=== PATIENT | female | born 1970 | race Caucasian/White ===

== ENCOUNTER 2016-10-05 21:52 | Inpatient (IN) | payer OTHER ==
[~2016-10-05] VITALS: Ht 165.1 cm; Wt 100.9 kg
--- NOTE | 2016-10-05 23:22 | ED CLINICAL REPORT ---
Clinical Report - Physicians/Mid Levels [facility] [address] [place] [address] 10/05/2016 21:54 Patient: OSKAR STYLES Time Seen: 22:05. Arrived- By private vehicle. Historian- patient. HISTORY OF PRESENT ILLNESS Chief Complaint: ABDOMINAL PAIN. This started about 4 hours ago and is still present. It was gradual in onset and has been waxing/waning. At its maximum, severity described as moderate. When seen in the E.D., severity described as moderate. Modifying factors. Not worsened by anything. Not relieved by anything. It is described as "pain". No radiation. It is described as located in the upper abdomen. The patient has had mild nausea. No vomiting or diarrhea. Similar symptoms previously: None. Recent medical care: Not recently seen/assessed. REVIEW OF SYSTEMS No constipation, black stools, hematemesis, difficulty with urination or pain with urination. No urinary frequency, bloody stools, fever, headache or sore throat. No chest pain, difficulty breathing, cough or back pain. Denies current . All systems otherwise negative, except as recorded above. PAST HISTORY See nurses notes. Primary physician: Dr Bynum ([place]). Type II diabetes mellitus treated with diet. Hyperlipidemia. Neuropathy. Arthritis. Surgeries: Tubal ligation. SOCIAL HISTORY Smoker- current status unknown. No alcohol use or drug use. Residence: [place] locally. ADDITIONAL NOTES The nursing notes have been reviewed. PHYSICAL EXAM Vital Signs: 10/05/2016 22:02 BP: 140/75. HR: 70. RR: 15. O2 saturation: 97%. Temp: 98.2 F. Pain level now: 7/10. Appearance: Alert. Patient in mild distress. Eyes: Eyes normal inspection. No scleral icterus or pale conjunctivae. ENT: Pharynx normal. No pharyngeal erythema or tonsillar exudate. The mucous membranes are not dry. Neck: Normal inspection. Neck supple. CVS: Normal heart rate and rhythm. Heart sounds normal. Pulses normal. Respiratory: No respiratory distress. Breath sounds normal. Abdomen: Moderate tenderness in the right upper quadrant. Positive Damian's sign. No organomegaly. No mass. Obese. No rebound tenderness or distention. Back: Normal inspection. Skin: Skin warm and dry. Normal skin color. No rash. Normal skin turgor. Extremities: Extremities exhibit normal ROM. No lower extremity edema. Neuro: Oriented X 3. No motor deficit. LABS, X-RAYS, AND EKG EKG: EKG time: (23:27). Normal sinus rhythm. Rate: 65. Normal P waves. Normal LIVAN. Normal QRS complex. Normal axis. Normal ST and T waves. The study has been interpreted contemporaneously by me. The EKG appears to be a good tracing. Chest X-ray: No acute disease. Normal lung markings present. Views: AP (portable). Technique: good. The X-rays were interpreted contemporaneously by me. Abdominal Sonogram: Multiple gallstones are present (small with one in neck - lodged). Gallbladder wall thickening is present. Mild pericholecystic fluid is present. (IMPRESSION: 1. Cholelithiasis with large gallstones (largest 2.4 cm), including a 1.6 cm gallstone lodged in the gallbladder neck. 2. Associated moderate gallbladder wall thickening consistent with cholecystitis (acute and/or chronic). 3. Mild fatty infiltration of the liver.). No common duct stones or dilated intrahepatic ducts. The study was interpreted contemporaneously by me. The study was discussed with the radiologist (Dr Renteria). Laboratory Tests: CBC w Diff: (WILTON: 10/05/2016 22:25) ( MsgRcvd 10/05/2016 22:42) Final results Test Result Flag Units (Reference) WHITE BLOOD COUNT 12.9 H K/uL (4.5-11.5) RED BLOOD COUNT 4.81 M/uL (4.00-5.20) HEMOGLOBIN 14.7 gm/dL (12.0-16.0) HEMATOCRIT 43.2 % (36.0-46.0) MEAN CELL VOLUME 90 fL (80-100) MEAN CORPUSCULAR HGB 31 pg (26-34) MEAN CORPUSCULAR HGB CONC 34 g/dL (31-37) RED CELL DISTRIBUTION WIDTH 12.4 % (11.6-14.8) PLATELET COUNT 231 K/uL (150-400) NEUTROPHIL % 76.0 H % (50-75) LYMPH % 16.9 L % (25-40) MONO % 4.9 % (3-14) EOSINOPHIL % 1.7 % (0-4) BASOPHIL % 0.5 % (0-2) PT with INR: (WILTON: 10/05/2016 22:25) ( [facility] 10/05/2016 22:50) Final results Test Result Flag Units (Reference) INR 1.0 (0.8-1.2) Low Intensity Therapy: INR 1.5-2.0 PT range 18.5-23.1Mod.Intensity Therapy: INR 2.0-3.0 PT range 23.1-31.5High Intensity Therapy: INR 2.5-3.5 PT range 27.4-35.5High Intensity Therapy 2: INR 3.0-4.0 PT range 31.5-39.3 BNP: (WILTON: 10/05/2016 22:25) ( [facility] 10/05/2016 23:04) Final results Test Result Flag Units (Reference) B-TYPE NATRIURETIC PEPTIDE < 5.0 L pg/ml (5-100) Lipase: (WILTON: 10/05/2016 22:25) ( [facility] 10/05/2016 22:57) Final results Test Result Flag Units (Reference) LIPASE 97 U/L (73-393) AMYLASE 48 U/L (25-115) ETHYL ALCOHOL <3 L mg/dL (3-10) CHEM 13 PANEL: (WILTON: 10/05/2016 22:25) ( [facility] 10/05/2016 22:57) Final results Test Result Flag Units (Reference) GLUCOSE 194 H mg/dL (70-110) BUN 13 mg/dL (7-18) CREATININE 0.9 mg/dL (0.6-1.3) Estimated GFR >60 mL/min Estimated GFR- >60 mL/min Note: Persistent reduction over 3 months in eGFR<60 mL/min/1.73 m2 defines CKD. Patients with eGFR values>=60 mL/min/1.73 m2 may also have CKD if evidence ofpersistent proteinuria. Additional information may be foundat www.kidney.org. SODIUM 142 mmol/L (136-145) POTASSIUM 3.9 mmol/L (3.5-5.1) CHLORIDE 104 mmol/L (98-107) CARBON DIOXIDE 28 mmol/L (21-32) CALCIUM 9.0 mg/dL (8.5-10.1) TOTAL PROTEIN 7.6 g/dL (6.4-8.2) ALBUMIN 3.6 g/dL (3.3-5.0) BILIRUBIN, TOTAL 0.2 mg/dL (0.0-1.0) ALKALINE PHOSPHATASE 126 H U/L (46-116) AST (SGOT) 15 U/L (15-37) ALT (SGPT) 26 U/L (12-78) MAGNESIUM 1.6 L mg/dL (1.8-2.4) CPK 51 U/L (24-260) TROPONIN I <0.05 L ng/mL (0.00-1.5) TROPONIN REFERENCE RANGE:<0.1 NEGATIVE0.1-1.5 INDETERMINANT>1.5 POSITIVE . Pulse Oximetry: 10/05/2016 22:02 O2 saturation: 97%. (FIO2 - room air). Interpretation: normal. PROGRESS AND PROCEDURES Course of Care: Normal Saline 1 liter IVPB given. Toradol 30 mg IVP given. Zosyn 3.375gm IVPB given. Zofran 4 mg IVP given. 00:32 10/06/16. Patient is stable. Physical exam findings are improved. Symptoms better. Discussed case with on-call health care provider, (Gus). Reviewed test results. Agreed upon treatment plan. Refers case to other health care provider. Discussed case with hospitalist, (Jose). Reviewed test results. Agreed upon treatment plan and decision to place in observation. Health care provider will see patient in hospital. Patient/family counseled. Transition orders written. Disposition: Observation in Acute Care. Condition: stable and improved. CLINICAL IMPRESSION Acute cholecystitis with cholelithiasis. No choledocholithiasis or pancreatitis. Chronic, moderately well controlled type 2 diabetes with hyperglycemia. No coma. Essential hypertension. Abnormal liver function test: alkaline phosphatase. INSTRUCTIONS Follow-up: Screening today revealed the patient's blood pressure to be in the hypertensive range. The patient should follow up with a primary care provider for blood pressure management. The patient was admitted and blood pressure will be managed during the admission. (Electronically signed by Colby Vale DO 10/06/2016 0:38)
--- NOTE | 2016-10-05 23:22 | ED ORDER SUMMARY ---
..... Patient: OSKAR STYLES OrderSheet [facility] VisitID: [id number] [place] [address] 46y, F Registration Date/Time: 10/05/2016 ORDER SHEET Weight: 97.5 kg (stated) Allergies: LIsinopril GENERAL ORDERS: US Abdomen Limited (No) Urgent (22:15 10/05/2016 PHutchinson DO) (Ack 22:28 AMcQuoid ER Tech1) (23:20 RCollier R.N.) UA-Culture if indicated Urgent (22:15 10/05/2016 PHutchinson DO) (Ack 22:28 AMcQuoid ER Tech1) Amylase Urgent (22:15 10/05/2016 PHutchinson DO) (Ack 22:28 AMcQuoid ER Tech1) (22:34 RCollier R.N.) Lipase Urgent (22:15 10/05/2016 PHutchinson DO) (Ack 22:28 AMcQuoid ER Tech1) (22:34 RCollier R.N.) PT with INR Urgent (22:15 10/05/2016 PHutchinson DO) (Ack 22:28 AMcQuoid ER Tech1) (22:34 RCollier R.N.) Cardiac Panel Stat (22:15 10/05/2016 PHutchinson DO) (Ack 22:28 AMcQuoid ER Tech1) (22:34 RCollier R.N.) Ethyl Alcohol Urgent (22:15 10/05/2016 PHutchinson DO) (Ack 22:28 AMcQuoid ER Tech1) (22:34 RCollier R.N.) Urine Drug Screen Urgent (22:15 10/05/2016 PHutchinson DO) (Ack 22:28 AMcQuoid ER Tech1) Urine Urgent (22:15 10/05/2016 PHutchinson DO) (Ack 22:28 AMcQuoid ER Tech1) BNP Urgent (22:15 10/05/2016 PHutchinson DO) (Ack 22:28 AMcQuoid ER Tech1) (22:34 RCollier R.N.) NPO (22:15 10/05/2016 PHutchinson DO) (Ack 22:28 AMcQuoid ER Tech1) (23:08 RCollier R.N.) EKG - ER Stat (22:15 10/05/2016 [facility]) (Ack 22:28 AMcQuoid ER Tech1) (23:41 RCollier R.N.) Call (Place call to): (Dr Weber) (23:21 10/05/2016 [facility]) (23:28 AMcQuoid ER Tech1) Chest 1V Urgent (23:31 10/05/2016 [facility]) (Ack 23:32 AMcQuoid ER Tech1) (23:40 GUnmisha) Call (Place call to): (Dr Garcia) (23:33 10/05/2016 [facility]) (Ack 23:35 AMcQuoid ER Tech1) (23:45 AMcQuoid ER Tech1) MEDICATION ORDERS: IV FLUIDS: IV NS with Normal Saline 1 Liter: initial bolus 1000 mL (1000 mL/hr), then 1000 mL/hr (NOW) (22:13 10/05/2016 [facility]) (Ack 22:18 RCollier R.N.) (22:33 RCollier R.N.) Toradol IV 30 mg (NOW) (22:15 10/05/2016 [facility]) (Ack 22:18 RCollier R.N.) (22:33 RCollier R.N.) Zofran IV 4 mg (NOW) (22:15 10/05/2016 [facility]) (Ack 22:18 RCollier R.N.) (22:34 RCollier R.N.) Zosyn IV 3.375 gm/50mL (NOW) (23:20 10/05/2016 [facility]) (Ack 23:26 EInderbitzen R.N.) (23:36 EInderbitzen R.N.) ORDER SHEET NOTES: [Electronically signed by Colby Vale DO (00:38 10/06/2016)] [Electronically signed by Zunilda Haque R.N. (00:39 10/06/2016)] [Electronically locked/signed by Zunilda Haque R.N. (00:39 10/06/2016)Cory
--- NOTE | 2016-10-05 23:22 | ED NURSING NOTES ---
Clinical Report - Nurses [facility] [address] [place] [address] 10/05/2016 21:54 Patient: OSKAR STYLES TRIAGE Triage time 22:02. Acuity: LEVEL 3. Chief Complaint: ABDOMINAL PAIN and NAUSEA. Alert. No acute distress. --22:07 Zunilda Haque R.N. 22:02 10/05/16. BP: 140/75. HR: 70. RR: 15. O2 saturation: 97% on room air. Temp: 98.2 F (oral). Pain level now: 01/17. --22:07 Zunilda Haque R.N. Weight: 97.5 kg stated. Height/Length: 65 inches Per Patient. BMI: 35.8. --22:05 Zunilda Haque R.N. Medications Gabapentin Oral. --22:05 Zunilda Haque R.N. Sodium naproxine. --22:06 Zunilda Haque R.N. Simvastatin Oral. --22:06 Zunilda Haque R.N. Allergies LIsinopril. --22:06 Zunilda Haque R.N. History Arrived by private vehicle. Historian: patient. [place] This started today. Onset. (about 4 hours [employer]). Treatment [employer]PERINT[employer]ENT: None. PAST MEDICAL HX: Immunizations: up-to-date. SOCIAL HX: Heavy tobacco smoker (cigarette)- less than 1 pack per day. No alcohol use or drug use. NUTRITIONAL RISK ASSESSMENT: The nutritional risk assessment revealed no deficiencies. FUNCTIONAL ASSESSMENT: Functional assessment: no impairments noted. --22:07 Zunilda Haque R.N. PROBLEMS: Neuropathy. Hypercholesterolemia. Diabetes Mellitus. --22:07 Zunilda Haque R.N. ADDITIONAL SURGERIES: Tubal Ligation. --22:07 Zunilda Haque R.N. Interventions ID band on patient. To treatment room. --22:07 Zunilda Haque R.N. PHYSICAL ASSESSMENT Ambulatory to room. Patient gowned. GENERAL / NEURO / PSYCH: Alert. Oriented X 4. Appears in no acute distress. HEENT: Mucous membranes are pink. RESPIRATORY: Respirations not labored. CVS: Capillary refill less than 2 seconds. SKIN: Skin is warm and dry. --22: Zunilda Haque R.N. NURSING PROGRESS NOTES Head of bed elevated. Two patient identifiers checked. Call light placed in reach. Side rails up x 1. Bed placed in lowest position. Brakes of bed on. --: Zunilda Haque R.N. Patient ready for evaluation- chart flagged. --22: Zunilda Haque R.N. 22:10/05/2016 Site #1 started via IV in the right hand with an 20g angiocath, with aseptic technique and good blood return; one attempt. Blood drawn: rainbow set. Labeled in the presence of the patient and sent to the lab. Saline lock flushed with 10 mL saline. --22:32 Zunilda Haque R.N. 22:10/05/2016 Started bag #1 1000 mL IV Fluids IV NS (Saline); at 1000 mL/hr via site #1 via IV pump. Allergies verified and confirmed 5 rights. IV patency established. IV site checked: no pain, redness, or swelling. IV flushed thoroughly pre- and post-medication administration. --22:33 Zunilda Haque R.N. 22:10/05/2016 Zofran (Ondansetron HCl) IVP 4 mg given over 30 second(s) via site #1. Allergies verified and confirmed 5 rights. IV patency established. IV site checked: no pain, redness, or swelling. IV flushed thoroughly pre- and post-medication administration. IVP given by RN. --22:34 Zunilda Haque R.N. 22:10/05/2016 Toradol IVP 30 mg given over 30 second(s) via site #1. Allergies verified and confirmed 5 rights. IV patency established. IV site checked: no pain, redness, or swelling. IV flushed thoroughly pre- and post-medication administration. IVP given by RN. --22:33 Zunilda Haque R.N. ( pt aware of need for urine, unable to produce at this time.). --22:34 Zunilda Haque R.N. 23:07- US at bedside. exam in progress. --23:07 Zunilda Haque R.N. 23:35 10/05/2016 Started 3.375 gm of Zosyn (Piperacillin Sod-Tazobactam So) IVPB in bag #1 100 mL; at 200 mL/hr over 30 minute(s) via site #1 via IV pump. Allergies verified and confirmed 5 rights. IV patency established. IV site checked: no pain, redness, or swelling. IV flushed thoroughly pre- and post-medication administration. --23:36 Mone Vines R.N. 23:36 10/05/16. BP: 99/60. HR: 68. RR: 18. O2 saturation: 100%. Temp: 98.6 F. Pain level now 08/20. --23:36 Mone Vines R.N. 23:30 10/05/2016 IV Fluids IV NS Discontinued: bag #1 completed. Total amount infused: 1000 mL. IV patency established. IV site checked: no pain, redness, or swelling. IV flushed thoroughly. --23:41 Zunilda Haque R.N. DISPOSITION / DISCHARGE Report was given to a nurse via a phone call. All questions were answered. Report was acknowledged. (to QUINTIN Wilkins). --00:23 Zunilda Haque R.N. 00:28 10/06/16. BP: 122/76. HR: 71. RR: 15. O2 saturation: 95% on room air. Temp: 98.4 F (oral). Pain level now: 08/20. --00:29 Zunilda Haque R.N. Disposition: observation in Acute Care. --00:30 Zunilda Haque R.N. Transported via stretcher by transport team with IV. --00:38 Zunilda Haque R.N. 00:38 10/06/2016 Site #[address] upon admission; patent, no pain and no signs of infection or infiltration. --00:38 Zunilda Haque R.N. 00:38 10/06/2016 Zosyn IVPB Continued: at the rate of 100 mL/hr. 20 mL remaining bag #1. IV patency established. IV site checked: no pain, redness, or swelling. IV flushed thoroughly. --00:38 Zunilda Haque R.N. Patient's personal items include: purse, clothing; items were placed in belongings bag and transported with the patient. Collection of belongings was witnessed by 1 nurse. --00:39 Zunilda Haque R.N. Locked/Released at 10/06/2016 0:39 by Zunilda Haque R.N.
--- NOTE | 2016-10-05 23:22 | ED NURSING NOTES ---
Clinical Report - Nurses [facility] [address] [place] [address] 10/05/2016 21:54 Patient: OSKAR STYLES TRIAGE Triage time 22:02. Acuity: LEVEL 3. Chief Complaint: ABDOMINAL PAIN and NAUSEA. Alert. No acute distress. --22:07 Zunilda Haque R.N. 22:02 10/05/16. BP: 140/75. HR: 70. RR: 15. O2 saturation: 97% on room air. Temp: 98.2 F (oral). Pain level now: 01/17. --22:07 Zunilda Haque R.N. Weight: 97.5 kg stated. Height/Length: 65 inches Per Patient. BMI: 35.8. --22:05 Zunilda Haque R.N. Medications Gabapentin Oral. --22:05 Zunilda Haque R.N. Sodium naproxine. --22:06 Zunilda Haque R.N. Simvastatin Oral. --22:06 Zunilda Haque R.N. Allergies LIsinopril. --22:06 Zunilda Haque R.N. History Arrived by private vehicle. Historian: patient. [place] This started today. 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 PAST MEDICAL HX: Immunizations: up-to-date. SOCIAL HX: Heavy tobacco smoker (cigarette)- less than 1 pack per day. No alcohol use or drug use. NUTRITIONAL RISK ASSESSMENT: The nutritional risk assessment revealed no deficiencies. FUNCTIONAL ASSESSMENT: Functional assessment: no impairments noted. --22:07 Zunilda Haque R.N. PROBLEMS: Neuropathy. Hypercholesterolemia. Diabetes Mellitus. --22:07 Zunilda Haque R.N. ADDITIONAL SURGERIES: Tubal Ligation. --22:07 Zunilda Haque R.N. Interventions ID band on patient. To treatment room. --22:07 Zunilda Haque R.N. PHYSICAL ASSESSMENT Ambulatory to room. Patient gowned. GENERAL / NEURO / PSYCH: Alert. Oriented X 4. Appears in no acute distress. HEENT: Mucous membranes are pink. RESPIRATORY: Respirations not labored. CVS: Capillary refill less than 2 seconds. SKIN: Skin is warm and dry. --22: Zunilda Haque R.N. NURSING PROGRESS NOTES Head of bed elevated. Two patient identifiers checked. Call light placed in reach. Side rails up x 1. Bed placed in lowest position. Brakes of bed on. --: Zunilda Haque R.N. Patient ready for evaluation- chart flagged. --22: Zunilda Haque R.N. 22:10/05/2016 Site #1 started via IV in the right hand with an 20g angiocath, with aseptic technique and good blood return; one attempt. Blood drawn: rainbow set. Labeled in the presence of the patient and sent to the lab. Saline lock flushed with 10 mL saline. --22:32 Zunilda Haque R.N. 22:10/05/2016 Started bag #1 1000 mL IV Fluids IV NS (Saline); at 1000 mL/hr via site #1 via IV pump. Allergies verified and confirmed 5 rights. IV patency established. IV site checked: no pain, redness, or swelling. IV flushed thoroughly pre- and post-medication administration. --22:33 Zunilda Haque R.N. 22:10/05/2016 Zofran (Ondansetron HCl) IVP 4 mg given over 30 second(s) via site #1. Allergies verified and confirmed 5 rights. IV patency established. IV site checked: no pain, redness, or swelling. IV flushed thoroughly pre- and post-medication administration. IVP given by RN. --22:34 Zunilda Haque R.N. 22:10/05/2016 Toradol IVP 30 mg given over 30 second(s) via site #1. Allergies verified and confirmed 5 rights. IV patency established. IV site checked: no pain, redness, or swelling. IV flushed thoroughly pre- and post-medication administration. IVP given by RN. --22:33 Zunilda Haque R.N. ( pt aware of need for urine, unable to produce at this time.). --22:34 Zunilda Haque R.N. 23:07- US at bedside. exam in progress. --23:07 Zunilda Haque R.N. 23:35 10/05/2016 Started 3.375 gm of Zosyn (Piperacillin Sod-Tazobactam So) IVPB in bag #1 100 mL; at 200 mL/hr over 30 minute(s) via site #1 via IV pump. Allergies verified and confirmed 5 rights. IV patency established. IV site checked: no pain, redness, or swelling. IV flushed thoroughly pre- and post-medication administration. --23:36 Mone Vines R.N. 23:36 10/05/16. BP: 99/60. HR: 68. RR: 18. O2 saturation: 100%. Temp: 98.6 F. Pain level now 08/20. --23:36 Mone Vines R.N. 23:30 10/05/2016 IV Fluids IV NS Discontinued: bag #1 completed. Total amount infused: 1000 mL. IV patency established. IV site checked: no pain, redness, or swelling. IV flushed thoroughly. --23:41 Zunilda Haque R.N. DISPOSITION / DISCHARGE Report was given to a nurse via a phone call. All questions were answered. Report was acknowledged. (to QUINTIN Wilkins). --00:23 Zunilda Haque R.N. 00:28 10/06/16. BP: 122/76. HR: 71. RR: 15. O2 saturation: 95% on room air. Temp: 98.4 F (oral). Pain level now: 08/20. --00:29 Zunilda Haque R.N. Disposition: observation in Acute Care. --00:30 Zunilda Haque R.N. Transported via stretcher by transport team with IV. --00:38 Zunilda Haque R.N. 00:38 10/06/2016 Site #[address] upon admission; patent, no pain and no signs of infection or infiltration. --00:38 Zunilda Haque R.N. 00:38 10/06/2016 Zosyn IVPB Continued: at the rate of 100 mL/hr. 20 mL remaining bag #1. IV patency established. IV site checked: no pain, redness, or swelling. IV flushed thoroughly. --00:38 Zunilda Haque R.N. Patient's personal items include: purse, clothing; items were placed in belongings bag and transported with the patient. Collection of belongings was witnessed by 1 nurse. --00:39 Zunilda Haque R.N. Locked/Released at 10/06/2016 0:39 by Zunilda Haque R.N.
--- NOTE | 2016-10-05 23:22 | ED ORDER SUMMARY ---
..... Patient: OSKAR STYLES OrderSheet [facility] VisitID: [id number] [place] [address] 46y, F Registration Date/Time: 10/05/2016 ORDER SHEET Weight: 97.5 kg (stated) Allergies: LIsinopril GENERAL ORDERS: US Abdomen Limited (No) Urgent (22:15 10/05/2016 PHutchinson DO) (Ack 22:28 AMcQuoid ER Tech1) (23:20 RCollier R.N.) UA-Culture if indicated Urgent (22:15 10/05/2016 PHutchinson DO) (Ack 22:28 AMcQuoid ER Tech1) Amylase Urgent (22:15 10/05/2016 PHutchinson DO) (Ack 22:28 AMcQuoid ER Tech1) (22:34 RCollier R.N.) Lipase Urgent (22:15 10/05/2016 PHutchinson DO) (Ack 22:28 AMcQuoid ER Tech1) (22:34 RCollier R.N.) PT with INR Urgent (22:15 10/05/2016 PHutchinson DO) (Ack 22:28 AMcQuoid ER Tech1) (22:34 RCollier R.N.) Cardiac Panel Stat (22:15 10/05/2016 PHutchinson DO) (Ack 22:28 AMcQuoid ER Tech1) (22:34 RCollier R.N.) Ethyl Alcohol Urgent (22:15 10/05/2016 PHutchinson DO) (Ack 22:28 AMcQuoid ER Tech1) (22:34 RCollier R.N.) Urine Drug Screen Urgent (22:15 10/05/2016 PHutchinson DO) (Ack 22:28 AMcQuoid ER Tech1) Urine Urgent (22:15 10/05/2016 PHutchinson DO) (Ack 22:28 AMcQuoid ER Tech1) BNP Urgent (22:15 10/05/2016 PHutchinson DO) (Ack 22:28 AMcQuoid ER Tech1) (22:34 RCollier R.N.) NPO (22:15 10/05/2016 PHutchinson DO) (Ack 22:28 AMcQuoid ER Tech1) (23:08 RCollier R.N.) EKG - ER Stat (22:15 10/05/2016 [facility]) (Ack 22:28 AMcQuoid ER Tech1) (23:41 RCollier R.N.) Call (Place call to): (Dr Weber) (23:21 10/05/2016 [facility]) (23:28 AMcQuoid ER Tech1) Chest 1V Urgent (23:31 10/05/2016 [facility]) (Ack 23:32 AMcQuoid ER Tech1) (23:40 GUnmisha) Call (Place call to): (Dr Garcia) (23:33 10/05/2016 [facility]) (Ack 23:35 AMcQuoid ER Tech1) (23:45 AMcQuoid ER Tech1) MEDICATION ORDERS: IV FLUIDS: IV NS with Normal Saline 1 Liter: initial bolus 1000 mL (1000 mL/hr), then 1000 mL/hr (NOW) (22:13 10/05/2016 [facility]) (Ack 22:18 RCollier R.N.) (22:33 RCollier R.N.) Toradol IV 30 mg (NOW) (22:15 10/05/2016 [facility]) (Ack 22:18 RCollier R.N.) (22:33 RCollier R.N.) Zofran IV 4 mg (NOW) (22:15 10/05/2016 [facility]) (Ack 22:18 RCollier R.N.) (22:34 RCollier R.N.) Zosyn IV 3.375 gm/50mL (NOW) (23:20 10/05/2016 [facility]) (Ack 23:26 EInderbitzen R.N.) (23:36 EInderbitzen R.N.) ORDER SHEET NOTES: [Electronically signed by Colby Vale DO (00:38 10/06/2016)] [Electronically signed by Zunilda Haque R.N. (00:39 10/06/2016)] [Electronically locked/signed by Zunilda Haque R.N. (00:39 10/06/2016)Cory
--- NOTE | 2016-10-05 23:22 | ED CLINICAL REPORT ---
Clinical Report - Physicians/Mid Levels [facility] [address] [place] [address] 10/05/2016 21:54 Patient: OSKAR STYLES Time Seen: 22:05. Arrived- By private vehicle. Historian- patient. HISTORY OF PRESENT ILLNESS Chief Complaint: ABDOMINAL PAIN. This started about 4 hours ago and is still present. It was gradual in onset and has been waxing/waning. At its maximum, severity described as moderate. When seen in the E.D., severity described as moderate. Modifying factors. Not worsened by anything. Not relieved by anything. It is described as "pain". No radiation. It is described as located in the upper abdomen. The patient has had mild nausea. No vomiting or diarrhea. Similar symptoms previously: None. Recent medical care: Not recently seen/assessed. REVIEW OF SYSTEMS No constipation, black stools, hematemesis, difficulty with urination or pain with urination. No urinary frequency, bloody stools, fever, headache or sore throat. No chest pain, difficulty breathing, cough or back pain. Denies current . All systems otherwise negative, except as recorded above. PAST HISTORY See nurses notes. Primary physician: Dr Bynum ([place]). Type II diabetes mellitus treated with diet. Hyperlipidemia. Neuropathy. Arthritis. Surgeries: Tubal ligation. SOCIAL HISTORY Smoker- current status unknown. No alcohol use or drug use. Residence: [place] Visiting locally. ADDITIONAL NOTES The nursing notes have been reviewed. PHYSICAL EXAM Vital Signs: 10/05/2016 22:02 BP: 140/75. HR: 70. RR: 15. O2 saturation: 97%. Temp: 98.2 F. Pain level now: 7/10. Appearance: Alert. Patient in mild distress. Eyes: Eyes normal inspection. No scleral icterus or pale conjunctivae. ENT: Pharynx normal. No pharyngeal erythema or tonsillar exudate. The mucous membranes are not dry. Neck: Normal inspection. Neck supple. CVS: Normal heart rate and rhythm. Heart sounds normal. Pulses normal. Respiratory: No respiratory distress. Breath sounds normal. Abdomen: Moderate tenderness in the right upper quadrant. Positive Damian's sign. No organomegaly. No mass. Obese. No rebound tenderness or distention. Back: Normal inspection. Skin: Skin warm and dry. Normal skin color. No rash. Normal skin turgor. Extremities: Extremities exhibit normal ROM. No lower extremity edema. Neuro: Oriented X 3. No motor deficit. LABS, X-RAYS, AND EKG EKG: EKG time: (23:27). Normal sinus rhythm. Rate: 65. Normal P waves. Normal LIVAN. Normal QRS complex. Normal axis. Normal ST and T waves. The study has been interpreted contemporaneously by me. The EKG appears to be a good tracing. Chest X-ray: No acute disease. Normal lung markings present. Views: AP (portable). Technique: good. The X-rays were interpreted contemporaneously by me. Abdominal Sonogram: Multiple gallstones are present (small with one in neck - lodged). Gallbladder wall thickening is present. Mild pericholecystic fluid is present. (IMPRESSION: 1. Cholelithiasis with large gallstones (largest 2.4 cm), including a 1.6 cm gallstone lodged in the gallbladder neck. 2. Associated moderate gallbladder wall thickening consistent with cholecystitis (acute and/or chronic). 3. Mild fatty infiltration of the liver.). No common duct stones or dilated intrahepatic ducts. The study was interpreted contemporaneously by me. The study was discussed with the radiologist (Dr Renteria). Laboratory Tests: CBC w Diff: (WILTON: 10/05/2016 22:25) ( MsgRcvd 10/05/2016 22:42) Final results Test Result Flag Units (Reference) WHITE BLOOD COUNT 12.9 H K/uL (4.5-11.5) RED BLOOD COUNT 4.81 M/uL (4.00-5.20) HEMOGLOBIN 14.7 gm/dL (12.0-16.0) HEMATOCRIT 43.2 % (36.0-46.0) MEAN CELL VOLUME 90 fL (80-100) MEAN CORPUSCULAR HGB 31 pg (26-34) MEAN CORPUSCULAR HGB CONC 34 g/dL (31-37) RED CELL DISTRIBUTION WIDTH 12.4 % (11.6-14.8) PLATELET COUNT 231 K/uL (150-400) NEUTROPHIL % 76.0 H % (50-75) LYMPH % 16.9 L % (25-40) MONO % 4.9 % (3-14) EOSINOPHIL % 1.7 % (0-4) BASOPHIL % 0.5 % (0-2) PT with INR: (WILTON: 10/05/2016 22:25) ( [facility] 10/05/2016 22:50) Final results Test Result Flag Units (Reference) INR 1.0 (0.8-1.2) Low Intensity Therapy: INR 1.5-2.0 PT range 18.5-23.1Mod.Intensity Therapy: INR 2.0-3.0 PT range 23.1-31.5High Intensity Therapy: INR 2.5-3.5 PT range 27.4-35.5High Intensity Therapy 2: INR 3.0-4.0 PT range 31.5-39.3 BNP: (WILTON: 10/05/2016 22:25) ( [facility] 10/05/2016 23:04) Final results Test Result Flag Units (Reference) B-TYPE NATRIURETIC PEPTIDE < 5.0 L pg/ml (5-100) Lipase: (WILTON: 10/05/2016 22:25) ( [facility] 10/05/2016 22:57) Final results Test Result Flag Units (Reference) LIPASE 97 U/L (73-393) AMYLASE 48 U/L (25-115) ETHYL ALCOHOL <3 L mg/dL (3-10) CHEM 13 PANEL: (WILTON: 10/05/2016 22:25) ( [facility] 10/05/2016 22:57) Final results Test Result Flag Units (Reference) GLUCOSE 194 H mg/dL (70-110) BUN 13 mg/dL (7-18) CREATININE 0.9 mg/dL (0.6-1.3) Estimated GFR >60 mL/min Estimated GFR- >60 mL/min Note: Persistent reduction over 3 months in eGFR<60 mL/min/1.73 m2 defines CKD. Patients with eGFR values>=60 mL/min/1.73 m2 may also have CKD if evidence ofpersistent proteinuria. Additional information may be foundat www.[email or web address].org. SODIUM 142 mmol/L (136-145) POTASSIUM 3.9 mmol/L (3.5-5.1) CHLORIDE 104 mmol/L (98-107) CARBON DIOXIDE 28 mmol/L (21-32) CALCIUM 9.0 mg/dL (8.5-10.1) TOTAL PROTEIN 7.6 g/dL (6.4-8.2) ALBUMIN 3.6 g/dL (3.3-5.0) BILIRUBIN, TOTAL 0.2 mg/dL (0.0-1.0) ALKALINE PHOSPHATASE 126 H U/L (46-116) AST (SGOT) 15 U/L (15-37) ALT (SGPT) 26 U/L (12-78) MAGNESIUM 1.6 L mg/dL (1.8-2.4) CPK 51 U/L (24-260) TROPONIN I <0.05 L ng/mL (0.00-1.5) TROPONIN REFERENCE RANGE:<0.1 NEGATIVE0.1-1.5 INDETERMINANT>1.5 POSITIVE . Pulse Oximetry: 10/05/2016 22:02 O2 saturation: 97%. (FIO2 - room air). Interpretation: normal. PROGRESS AND PROCEDURES Course of Care: Normal Saline 1 liter IVPB given. Toradol 30 mg IVP given. Zosyn 3.375gm IVPB given. Zofran 4 mg IVP given. 00:32 10/06/16. Patient is stable. Physical exam findings are improved. Symptoms better. Discussed case with on-call health care provider, (Gus). Reviewed test results. Agreed upon treatment plan. Refers case to other health care provider. Discussed case with hospitalist, (Jose). Reviewed test results. Agreed upon treatment plan and decision to place in observation. Health care provider will see patient in hospital. Patient/family counseled. Transition orders written. Disposition: Observation in Acute Care. Condition: stable and improved. CLINICAL IMPRESSION Acute cholecystitis with cholelithiasis. No choledocholithiasis or pancreatitis. Chronic, moderately well controlled type 2 diabetes with hyperglycemia. No coma. Essential hypertension. Abnormal liver function test: alkaline phosphatase. INSTRUCTIONS Follow-up: Screening today revealed the patient's blood pressure to be in the hypertensive range. The patient should follow up with a primary care provider for blood pressure management. The patient was admitted and blood pressure will be managed during the admission. (Electronically signed by Colby Vale DO 10/06/2016 0:38)
--- NOTE | 2016-10-05 23:59 | DIAGNOSTIC IMAGING REPORT ---
PROCEDURE: XR CHEST 1 VIEW INDICATION: EPIGASTRIC PAIN TECHNIQUE: Portable AP view (2340 hours). COMPARISON: None. FINDINGS: Lungs are clear. Heart and mediastinum are normal. Thorax is normal. IMPRESSION: 1. Negative chest.
--- NOTE | 2016-10-06 00:04 | DIAGNOSTIC IMAGING REPORT ---
PROCEDURE: US ABDOMEN ULTRASOUND-LIMITED INDICATION: Right upper quadrant pain. TECHNIQUE: Lopez scale and color Doppler sonographic images of the abdomen were obtained. COMPARISON: None. FINDINGS: There are multiple large gallstones (largest 2.4 cm) with a 1.6 cm gallstone lodged in the gallbladder neck. Moderate thickening of the gallbladder wall (of 6 mm). Common duct is somewhat difficult to visualize due to adjacent gallstones, but appears to be normal (3 mm). Mild fatty infiltration of the liver (focal fat sparing in the gallbladder fossa). Pancreas and right kidney are seen, and are normal. IMPRESSION: 1. Cholelithiasis with large gallstones (largest 2.4 cm), including a 1.6 cm gallstone lodged in the gallbladder neck. 2. Associated moderate gallbladder wall thickening consistent with cholecystitis (acute and/or chronic). 3. Mild fatty infiltration of the liver. 4. Findings discussed with Dr. Vale.
--- NOTE | 2016-10-06 00:39 | ED MED RECONCILIATION SUMMARY ---
Patient: OSKAR STYLES Medication Reconciliation Report [facility] VisitID: [id number] [address] [place] [address] 46y, F Registration Date/Time: 10/05/2016 Weight: 97.5 kg Height/Length: 65 in. BMI: 35.8 ALLERGIES: LIsinopril The patient's Home Medications are listed below: THE FOLLOWING MEDICATIONS NEED TO BE RECONCILED: Gabapentin Oral Simvastatin Oral Sodium naproxine The source(s) of the original Home Medication information: Not obtained. The following Medications were given to the patient in the Emergency Department: IV NS IV Fluids bolus 0, then 1000 mL/hr, administered: 10/05/2016 10:27:00 PM Toradol [IVP] IVP 30 mg, administered: 10/05/2016 10:29:00 PM Zofran [IVP] IVP 4 mg, administered: 10/05/2016 10:28:00 PM Zosyn [IVPB] IVPB bolus 0, then 3.375 gm 200 mL/hr, administered: 10/05/2016 11:35:00 PM The following Medications were prescribed to the patient: None.
--- NOTE | 2016-10-06 00:39 | ED MAR SUMMARY ---
..... Medication Administration Record [facility] [address] [place] [address] Patient: OSKAR STYLES Visit ID: [id number] 46y, F Weight: 97.5 kg Height/Length: 65 in BMI: 35.8 ALLERGIES: LIsinopril Start 22:27 10/05/2016 Zunilda Haque R.N., Stop 23:30 10/05/2016 Zunilda Haque R.N. Medication Administered: IV NS (SALINE), Dose: IV Fluids, Rate: 1000 mL/hr, Dispensed: 1000 mL bag, Site: #1 right hand. Medication Ordered: IV NS with Normal Saline 1 Liter: initial bolus 1000 mL (1000 mL/hr), then 1000 mL/hr (NOW). Given 22:28 10/05/2016 Zunilda Haque R.N. Medication Administered: ZOFRAN [IVP] (ONDANSETRON HCL), Dose: 4 mg IVP over 30 second(s), Site: #1 right hand. Medication Ordered: Zofran IV 4 mg (NOW). Given 22:29 10/05/2016 Zunilda Haque R.N. Medication Administered: TORADOL [IVP], Dose: 30 mg IVP over 30 second(s), Site: #1 right hand. Medication Ordered: Toradol IV 30 mg (NOW). Start 23:35 10/05/2016 oMne Vines R.N., Continued Upon Disposition 00:38 10/06/2016 Zunilda Haque ROziel Medication Administered: ZOSYN [IVPB] (PIPERACILLIN SOD-TAZOBACTAM SO), Dose: 3.375 gm IVPB over 30 minute(s), Rate: 200 mL/hr, Dispensed: 100 mL bag, Site: #1 right hand. Medication Ordered: Zosyn IV 3.375 gm/50mL (NOW).
--- NOTE | 2016-10-06 00:39 | ED MED RECONCILIATION SUMMARY ---
Patient: OSKAR STYLES Medication Reconciliation Report [facility] VisitID: [id number] [address] [place] [address] 46y, F Registration Date/Time: 10/05/2016 Weight: 97.5 kg Height/Length: 65 in. BMI: 35.8 ALLERGIES: LIsinopril The patient's Home Medications are listed below: THE FOLLOWING MEDICATIONS NEED TO BE RECONCILED: Gabapentin Oral Simvastatin Oral Sodium naproxine The source(s) of the original Home Medication information: Not obtained. The following Medications were given to the patient in the Emergency Department: IV NS IV Fluids bolus 0, then 1000 mL/hr, administered: 10/05/2016 10:27:00 PM Toradol [IVP] IVP 30 mg, administered: 10/05/2016 10:29:00 PM Zofran [IVP] IVP 4 mg, administered: 10/05/2016 10:28:00 PM Zosyn [IVPB] IVPB bolus 0, then 3.375 gm 200 mL/hr, administered: 10/05/2016 11:35:00 PM The following Medications were prescribed to the patient: None.
--- NOTE | 2016-10-06 00:39 | ED DISCHARGE INSTRUCTIONS ---
Patient: OSKAR STYLES General Instructions [facility] VisitID: [id number] [place] [address] 46y, F Registration Date/Time: 10/05/2016 Acute cholecystitis with cholelithiasis. No choledocholithiasis or pancreatitis. Chronic, moderately well controlled type 2 diabetes with hyperglycemia. No coma. Essential hypertension. Abnormal liver function test: alkaline phosphatase. INSTRUCTIONS Follow-up: Screening today revealed the patient's blood pressure to be in the hypertensive range. The patient should follow up with a primary care provider for blood pressure management. The patient was admitted and blood pressure will be managed during the admission. ADDITIONAL INFORMATION High Blood Pressure -- To Be Confirmed [No Tx] Your blood pressure was higher today than normal. Sometimes anxiety or pain can cause a temporary rise in blood pressure that later returns to normal. If your blood pressure is high on one measurement, this does not mean that you have hypertension (a chronic illness). However, you must have your blood pressure measured again within the next few days to find out if its still high. A normal blood pressure is 120/80 or less. The first (top) number is the "systolic" pressure. The second (bottom) number is the "diastolic" pressure. Hypertension exists when either the top number is 140 or higher, OR the bottom number is 90 or higher on repeated measurements. Blood pressure in the range of 120-140 (systolic) or 80-89 (diastolic) is considered "pre-hypertension". This means your are at risk for getting hypertension. You should have regular blood pressure checks to be sure your blood pressure is not rising. Home Care: Measure your blood pressure on 3 different days and write down the results. This can be done at your doctor's office or this facility. Some pharmacies and grocery stores offer automated blood pressure machines for your use. Follow Up: If your blood pressure is "high" (over 120/80) on 2 out of 3 days, you will need to follow up with your doctor for further evaluation and treatment. DO NOT PUT THIS OFF! Untreated high blood pressure increases the risk for heart attack, also known as acute myocardial infarction, or AMI, and stroke. It is a treatable condition. Get Prompt Medical Attention if any of the following occur: Chest pain or shortness of breath Severe headache Throbbing or rushing sound in the ears Nosebleed Sudden severe abdominal pain Extreme drowsiness, confusion or fainting Dizziness or vertigo (dizziness with spinning sensation) Weakness of an arm or leg or one side of the face Difficulty with speech or vision You have been given the following additional information: Hypertension, To Be Confirmed (Electronically signed by Colby Vale DO 10/06/2016 0:38)
--- NOTE | 2016-10-06 00:39 | ED MAR SUMMARY ---
..... Medication Administration Record [facility] [address] [place] [address] Patient: OSKAR STYLES Visit ID: [id number] 46y, F Weight: 97.5 kg Height/Length: 65 in BMI: 35.8 ALLERGIES: LIsinopril Start 22:27 10/05/2016 Zunilda Haque R.N., Stop 23:30 10/05/2016 Zunilda Haque R.N. Medication Administered: IV NS (SALINE), Dose: IV Fluids, Rate: 1000 mL/hr, Dispensed: 1000 mL bag, Site: #1 right hand. Medication Ordered: IV NS with Normal Saline 1 Liter: initial bolus 1000 mL (1000 mL/hr), then 1000 mL/hr (NOW). Given 22:28 10/05/2016 Zunilda Haque R.N. Medication Administered: ZOFRAN [IVP] (ONDANSETRON HCL), Dose: 4 mg IVP over 30 second(s), Site: #1 right hand. Medication Ordered: Zofran IV 4 mg (NOW). Given 22:29 10/05/2016 Zunilda Haque R.N. Medication Administered: TORADOL [IVP], Dose: 30 mg IVP over 30 second(s), Site: #1 right hand. Medication Ordered: Toradol IV 30 mg (NOW). Start 23:35 10/05/2016 Mone Vines R.N., Continued Upon Disposition 00:38 10/06/2016 Zunilda Haque ROziel Medication Administered: ZOSYN [IVPB] (PIPERACILLIN SOD-TAZOBACTAM SO), Dose: 3.375 gm IVPB over 30 minute(s), Rate: 200 mL/hr, Dispensed: 100 mL bag, Site: #1 right hand. Medication Ordered: Zosyn IV 3.375 gm/50mL (NOW).
[2016-10-06 00:57] VITALS: BP 129/71
[2016-10-06] MEDS ORDERED: GABAPENTIN600 MG PO (01:04)
[2016-10-06] MEDS ORDERED: GABAPENTIN300 MG PO (01:05)
[2016-10-06] MEDS ORDERED: SIMVASTATIN10 MG PO (01:06)
[2016-10-06] MEDS ORDERED: TRAZODONE HCL100 MG PO (01:07)
--- NOTE | 2016-10-06 01:51 | History & Physical Report ---
Admission Admit Date 10/05/16 History Chief Complaint Abdominal Pain, Nausea History of Present Illness Patient is a 46 year old female with a past medical history of Diabetes Mellitus Type II, Hyperlipidemia, and Morbid Obesity. She presents to the ER at [facility] complaining of abdominal pain. Pt states the abdominal pain began yesterday evening. She reports the pain as a sharp sensation over her RUQ. She denies any radiation of the pain. Pt states the pain is severe and rates the pain at 10/10 at its worst. She states the pain seems to come in waves. She states eating does not seem to make the pain better or worse. She has never experienced symptoms like this in the past. She states the pain is associated with nausea but denies vomiting. Pt further denies any constipation, diarrhea, and fever. No other complaints or concerns at this time. Patient History 1. Morbid obesity 2. Hyperlipidemia 3. Diabetes mellitus type II, controlled Social History Pt denies any hx of tobacco, alcohol, and illicit drug use. She is currently visiting the area from [place], [place]. Family History Family history was reviewed; no changes noted. Medications and Allergies Medications Current Medications Sig/Torres Start time Last Medication Dose Route Stop Time Status Admin Influenza Virus 0.5 ML 0900 10/07 0900 AC Vaccine IM 10/07 1800 Gabapentin 300 MG DAILY 10/06 1200 UNVr PO Gabapentin 600 MG BID 10/06 0900 UNV PO Insulin Human Lispro See Dose ACHS 10/06 0730 UNi Insts (1) SC Acetaminophen 650 MG Q6H PRN 10/06 0145 UNV PO Docusate Sodium 250 MG BID PRN 10/06 0145 UNV PO Hydromorphone HCl 1 MG Q6H PRN 10/06 0145 UNV IV Naloxone HCl 0.4 MG PRN PRN 10/06 0145 UNV IV Ondansetron HCl 4 MG Q6H PRN 10/06 0145 UNV IV Sodium Chloride 1,000 ML ASDIRECTED 10/06 0145 UNV IV Zolpidem Tartrate 5 MG QHS PRN 10/06 0145 UNV PO Famotidine/Sodium 50 ML Q12HR 10/06 0138 UNVr Chloride IV Ondansetron HCl 4 MG Q4H PRN 10/06 0030 AC IV 1. Simvastatin 2. Gabapentin 3. Trazodone Allergies Coded Allergies: Lisinopril (10/06/16) Review of Systems Other All systems reviewed and are negative except for what has already been mentioned in the HPI. Physical Exam Vital Signs / I&Os Vital Signs Date Time Temp Pulse Resp B/P Pulse O2 O2 Flow FiO2 Ox Delivery Rate 10/06 0057 97.9 60 20 129/71 96 Room Air Other GENERAL: NAD; Pt laying comfortably in bed HEENT: AT/NC; PERRLA, EOMI; MM Moist CARDIAC: RRR, No M/R/G appreciated PULM: Clear to auscultation bilaterally ABD: Soft, TTP over RUQ with positive silvestre's sign, ND, Positive BS in all quadrants; No hepatosplenomegaly appreciated EXT: No C/C/E in bilateral upper and lower extremity; No calve tenderness bilaterally SKIN: Warm, dry, pink, and intact NEURO: Alert and oriented x3; Following all commands PSYCH: Normal mood and affect LAB Results Laboratory Tests 10/05 10/05 10/05 2225 2225 2225 Chemistry Plasma Sodium (136 - 145 mmol/L) 142 Plasma Potassium (3.5 - 5.1 mmol/L) 3.9 Plasma Chloride (98 - 107 mmol/L) 104 CO2 (Enzymatic) (21 - 32 mmol/L) 28 BUN (7 - 18 mg/dL) 13 Creatinine (0.6 - 1.3 mg/dL) 0.9 Est GFR ( Amer) (mL/min) >60 Est GFR (Non-Af Amer) (mL/min) >60 Glucose (70 - 110 mg/dL) 194 Plasma Calcium (8.5 - 10.1 mg/dL) 9.0 Plasma Magnesium (1.8 - 2.4 mg/dL) 1.6 Total Bilirubin (0.0 - 1.0 mg/dL) 0.2 AST (15 - 37 U/L) 15 ALT (12 - 78 U/L) 26 Alkaline Phosphatase (46 - 116 U/L) 126 Creatine Kinase (24 - 260 U/L) 51 Troponin (0.00 - 1.5 ng/mL) <0.05 B-Natriuretic Peptide (5 - 100 pg/ml) < 5.0 Total Protein (6.4 - 8.2 g/dL) 7.6 Albumin (3.3 - 5.0 g/dL) 3.6 Amylase (25 - 115 U/L) 48 Lipase (73 - 393 U/L) 97 Coagulation INR (0.8 - 1.2) 1.0 Hematology WBC (4.5 - 11.5 K/uL) 12.9 RBC (4.00 - 5.20 M/uL) 4.81 Hgb (12.0 - 16.0 gm/dL) 14.7 Hct (36.0 - 46.0 %) 43.2 MCV (80 - 100 fL) 90 MCH (26 - 34 pg) 31 RDW (11.6 - 14.8 %) 12.4 Neut % (Auto) (50 - 75 %) 76.0 Lymph % (Auto) (25 - 40 %) 16.9 Saline % (Auto) (3 - 14 %) 4.9 Eos % (Auto) (0 - 4 %) 1.7 Baso % (Auto) (0 - 2 %) 0.5 Plt Count, EDTA (150 - 400 K/uL) 231 PUBS MCHC (31 - 37 g/dL) 34 Toxicology Plasma/Serum Ethyl Alc (3 - 10 mg/dL) <3 Imaging US ABDOMEN ULTRASOUND-LIMITED INDICATION: Right upper quadrant pain. TECHNIQUE: Lopez scale and color Doppler sonographic images of the abdomen were obtained. COMPARISON: None. FINDINGS: There are multiple large gallstones (largest 2.4 cm) with a 1.6 cm gallstone lodged in the gallbladder neck. Moderate thickening of the gallbladder wall (of 6 mm). Common duct is somewhat difficult to visualize due to adjacent gallstones, but appears to be normal (3 mm). Mild fatty infiltration of the liver (focal fat sparing in the gallbladder fossa). Pancreas and right kidney are seen, and are normal. IMPRESSION: 1. Cholelithiasis with large gallstones (largest 2.4 cm), including a 1.6 cm gallstone lodged in the gallbladder neck. 2. Associated moderate gallbladder wall thickening consistent with cholecystitis (acute and/or chronic). 3. Mild fatty infiltration of the liver. Assessment and Plan Problem List 1. Cholecystitis, acute with cholelithiasis Plan - Admit to Acute Care under observation as length of stay is estimated to be greater than 2 midnights - General Surgery has been consulted by the ER - NPO for now for surgery in AM - Start IV Normal Saline at 100 mL/hour - Repeat CBC, BMP, and INR in AM - IV Dilaudid 1 mg q 6 hours PRN for severe pain - Pt to be taken for cholecystectomy in AM 2. Diabetes mellitus type II, controlled Plan - Pt is normally diet controlled at home - Check FSBS q 6 hours while she is NPO - Low-dose SSI ordered - Check HgbA1C 3. Hyperlipidemia Plan - Pt is normally on Simvastatin 10 mg PO daily at home - Will resume this medication post operatively
[2016-10-06 06:45] VITALS: BP 135/79
--- NOTE | 2016-10-06 09:14 | Provider's Discharge Care Plan ---
Problem, Goal, Plan Problem List 1. Cholecystitis, acute with cholelithiasis 2. Diabetes mellitus type II, controlled 3. Hyperlipidemia
--- NOTE | 2016-10-06 09:14 | Provider's Discharge Care Plan ---
Problem, Goal, Plan Problem List 1. Cholecystitis, acute with cholelithiasis 2. Diabetes mellitus type II, controlled 3. Hyperlipidemia
--- NOTE | 2016-10-06 09:50 | CONSULTATION REPORT ---
DATE OF CONSULTATION: 10/06/2016 CHIEF COMPLAINT: 1. Abdominal pain HISTORY OF PRESENT ILLNESS: The patient is a 46-year-old woman who presented to the emergency department yesterday evening with the acute onset of right upper quadrant abdominal pain. This started about 5:00 yesterday and was persistent, but this morning, the patient reports the pain is now totally gone. She had nausea at that time, but no vomiting. She reported no history of jaundice or pancreatitis. No previous attacks of similar nature. She denies any significant family history of gallbladder disease. MEDICAL/SURGICAL HISTORY: Past medical history of diet-controlled diabetes mellitus and diabetic neuropathy. Gynecologic history: She is G3, P3. MEDICATIONS: 1. Gabapentin dose unknown 2. Naproxen 500 mg b.i.d. 3. Simvastatin p.o. dose unknown 4. She reports she takes no diabetic medication. ALLERGIES: 1. LISINOPRIL CAUSING TONGUE SWELLING. SOCIAL HISTORY: The patient is on disability due to diabetes and neuropathy. She is not currently employed outside the home. She smokes less than 1 pack per day of cigarettes. Does not take alcohol. She is single. FAMILY HISTORY: Father of cardiac aneurysm and mother of stroke. REVIEW OF SYSTEMS: A multipoint review of systems was obtained covering at least 12 systems. She reports no head and neck problems, sinus difficulties, vision problems, hearing problems, neck pain or stiffness, thyroid problems, chest pain, palpitations, hemoptysis, or cough. At this time, she reports no residual abdominal pain. She reports no extremity problems other than hand and foot neuropathy pain. She reports no diarrhea, hematochezia, or hematemesis. PHYSICAL EXAMINATION: VITAL SIGNS: Temperature is 98.1, pulse of 70, respirations 20, blood pressure 135/79. GENERAL: The patient is alert and cooperative. She is mentally oriented and provides appropriate history. HEENT: Ears and nose without gross external lesions. Eyes are equal. There is no icterus. NECK: Without palpable masses or thyromegaly. CHEST: Clear without wheeze or rales. HEART: Regular, without murmur or gallop. ABDOMEN: Reveals no tenderness to palpation and there is no palpable hepatosplenomegaly. Bowel sounds are active. She is nondistended. EXTREMITIES: Symmetric. She appears to move without restriction. LAB/IMAGING: Demonstrated initially white count 12.9 with a repeat today of 10.7 , hemoglobin and hematocrit 13 and 38. Chemistry show normal bilirubin of 0.2, normal alkaline phosphatase, INR is normal. Her ultrasound shows cholelithiasis with large gallstones including a 1.6 cm gallstone in the gallbladder neck. There is thick- walled gallbladder, but no pericholecystic fluid as mentioned. IMPRESSION: 1. Acute persistent biliary colic, which has now resolved. PLAN: I have recommended the patient undergo a laparoscopic cholecystectomy with cholangiography at the next available opportunity. She reports that she would very much like to get back to [facility] and is not interested in undergoing surgery at this time. I made her aware that there are some risks to delaying surgery, such as recurrent attack and more severe problems such as gangrenous gallbladder, pancreatitis and others as catastrophe. Given that this patient, however, at the present time is asymptomatic, it does not seem entirely unreasonable to delay her surgery by her choice. To this end, I have recommended that we try her on a carb controlled diet and if she should tolerate oral alimentation without any significant pain then she is free to return to her primary care physician and seek a surgical referral at a more elective time. If, however, the pain flares then my recommendation is that she stay in the hospital and undergo surgery at the next available opportunity. She appeared to understand this and would like to try it. If, however, she has pain and then she will have to sign out against medical advice as I will not discharge her if she has ongoing symptoms.
--- NOTE | 2016-10-06 10:53 | Discharge Summary ---
Discharge Summary Report Admit Date 10/05/16 Discharge Date 10/06/16 Admission Diagnosis abdominal pain Discharge Diagnosis symptomatic cholelithiasis Brief History Patient is a 46 year old female with a past medical history of Diabetes Mellitus Type II, Hyperlipidemia, and Morbid Obesity. She presents to the ER at [facility] complaining of abdominal pain. Pt states the abdominal pain began yesterday evening. She reports the pain as a sharp sensation over her RUQ. She denies any radiation of the pain. Pt states the pain is severe and rates the pain at 10/10 at its worst. She states the pain seems to come in waves. She states eating does not seem to make the pain better or worse. She has never experienced symptoms like this in the past. She states the pain is associated with nausea but denies vomiting. Pt further denies any constipation, diarrhea, and fever. Hospital Course Patient was admitted seen to be stable and without cholecystitis requiring immediate intervention. Paient was symptomatically feeling well, and was able to tolerate a diet. As per surgeon patient can return if her symptoms return or become more sever. General Appearance Alert, Oriented X3, No acute distress Lungs Clear to auscultation Cardiovascular Normal S1, Normal S2 Abdomen Soft, No tenderness Skin No Rashes, No Breakdown Neurological Normal tone Discharge Instructions/Meds - follow up with pmd - return to hospital if your symptoms return
== END 2016-10-06 10:59 | disposition home or self-care (01) | DRG 446 ==
LOC: ED SRH 21:52 → ACUTE2 SRH 23:30 → TRANS SRH 23:30 → ACUTE2 SRH 10-06 00:57
PROVIDERS: ADMIT Surgery
DX: K80.20 Calculus of gallbladder without cholecystitis without obstruction (principal); E11.65 Type 2 diabetes mellitus with hyperglycemia; E11.40 Type 2 diabetes mellitus with diabetic neuropathy, unspecified; I10 Essential (primary) hypertension; E78.5 Hyperlipidemia, unspecified; R74.8 Abnormal levels of other serum enzymes; E66.01 Morbid (severe) obesity due to excess calories; Z68.35 Body mass index [BMI] 35.0-35.9, adult; Z72.0 Tobacco use